=== PATIENT | male | born 1945 | race Caucasian/White ===

== ENCOUNTER 2017-12-08 11:57 | Inpatient (IN) | payer MEDICARE, BC ==
[~2017-12-08] VITALS: Ht 177.8 cm; Wt 95.5 kg
[~2017-12-08 11:57] MED LIST: FAMO-128 PO; PROC5TAB56 PO
[2017-12-08] MEDS ORDERED: ondansetron 4mg rapidly disintigrating tab PO ONE (14:15)
[2017-12-08] MEDS ORDERED: proCHLORperazine 10 MG/2 ml inj IV ONE (14:15)
[2017-12-08] MEDS ORDERED: normal saline 1000ML IV soln IVB ONE (14:15)
[2017-12-08 14:41] LABS: BASOPHILS % (AUTO) 0.3 % (0-1); EOSINOPHILS # (AUTO) 0.2 X10'3 (0-0.9); EOSINOPHILS % (AUTO) 1.5 % (0-6); HEMATOCRIT 49.8 % (42.0-52.0); HEMOGLOBIN 17.5 g/dl (14.0-17.9); LYMPHOCYTES # (AUTO) 1.1 X10'3 (1.1-4.8); LYMPHOCYTES % (AUTO) 10.8 % (21-51); MEAN CORPUSCULAR HEMOGLOBIN 29.4 PG (27.0-31.0); MEAN CORPUSCULAR HGB CONC 35.1 % (33.0-36.5); MEAN CORPUSCULAR VOLUME 83.9 FL (78-98); MEAN PLATELET VOLUME 7.7 FL (7.4-10.4); MONOCYTES # (AUTO) 0.9 X10'3 (0-0.9); MONOCYTES % (AUTO) 8.8 % (2-12); NEUTROPHILS # (AUTO) 8.3 X10'3 (1.8-7.7); NEUTROPHILS % (AUTO) 78.6 % (42-75); PLATELET COUNT 219 X10'3 (140-440); RED BLOOD COUNT 5.94 X10'6 (4.70-6.10); RED CELL DISTRIBUTION WIDTH 13.5 % (11.5-14.5); WHITE BLOOD COUNT 10.6 X10'3 (4.5-11.0)
[2017-12-08 14:54] LABS: ALANINE AMINOTRANSFERASE 27 U/L (12-78); ALBUMIN 4.4 G/DL (3.4-5.0); ALBUMIN/GLOBULIN RATIO 1.1 (1.1-1.5); ALKALINE PHOSPHATASE 62 IU/L (46-116); ANION GAP 14 (8-16); ASPARTATE AMINO TRANSFERASE 21 U/L (10-37); BLOOD UREA NITROGEN 60 MG/DL (7-18); BUN/CREATININE RATIO 16.4 (5.4-32.0); CALCIUM 9.4 MG/DL (8.5-10.1); CHLORIDE 90 MMOL/L (99-107); CREATININE 3.66 MG/DL (0.60-1.10); GLUCOSE 191 MG/DL (70-104); LIPASE 139 U/L (73-393); POTASSIUM 3.1 MMOL/L (3.5-5.1); SODIUM 128 MMOL/L (135-145); TOTAL PROTEIN 8.4 G/DL (6.4-8.2); eGFR 16 ML/MIN
[2017-12-08] MEDS: potassium 10mEq/100ml NS w/LIDOcaine (10mg/bag) IV SCH ×2 (15:08→16:32)
[2017-12-08] MEDS ORDERED: HYDR25TA4 PO (15:13)
[2017-12-08] MEDS ORDERED: METO100T7 PO (15:13)
[2017-12-08] MEDS ORDERED: normal saline 1000ML IV soln IV ONE (15:40)
[2017-12-08] MEDS ORDERED: morphine 4 MG/ML inj SYRINge IV ONE (16:20)
[2017-12-08 16:42] LABS: CLARITY,URINE SLIGHTLY CLOUDY (Clear); COLOR,URINE YELLOW (Yellow); GLUCOSE, URINE NEGATIVE (Neg); KETONES,URINE NEGATIVE (Neg); LEUKOCYTE ESTERASE ,URINE NEGATIVE (Neg); NITRITES, URINE NEGATIVE (Neg); OCCULT BLOOD,URINE TRACE-INTACT (Neg); PROTEIN,URINE TRACE mg/dl (Neg); UROBILINOGEN,URINE 0.2 E.U/dL (0.2-1.0)
[2017-12-08] MEDS ORDERED: MORPHINE 2MG in 2ml NS syringe IV PRN (16:45)
[2017-12-08 16:46] LABS: UA COLLECTION TYPE CLN CATCH MIDSTREAM
[2017-12-08 16:53] LABS: RBC,URINE 0-2 /HPF (0-2); WBC,URINE 0-4 /HPF (0-4)
[2017-12-08 16:54] LABS: BACTERIA,URINE NONE SEEN /HPF (Neg); MUCUS STRANDS FEW /LPF (Neg); SQUAMOUS EPITHELIAL CELL,UR FEW /LPF (FEW)
[2017-12-08] MEDS: ondansetron 4mg rapidly disintigrating tab PO PRN (17:03)
[2017-12-08] MEDS: pantoprazole 40 MG vial IV SCH (17:04)
[2017-12-08] MEDS: normal saline 1000ml 1,000 ML IV SCH (17:06)
[2017-12-08] MEDS ORDERED: heparin, porcine 5000 units/ml vial SQ SCH (20:00)
[2017-12-08] MEDS: heparin, porcine 5000 units/ml vial SQ SCH (20:15)
[2017-12-08] MEDS ORDERED: morphine 4 MG/ML inj SYRINge IV PRN (21:33)
[2017-12-09] MEDS: ondansetron 4mg rapidly disintigrating tab PO PRN (01:25)
[2017-12-09] MEDS: normal saline 1000ml 1,000 ML IV SCH ×3 (02:55→23:07)
[2017-12-09 06:19] LABS: BASOPHILS % (AUTO) 0.2 % (0-1); EOSINOPHILS # (AUTO) 0.1 X10'3 (0-0.9); EOSINOPHILS % (AUTO) 0.8 % (0-6); HEMATOCRIT 47.6 % (42.0-52.0); HEMOGLOBIN 16.4 g/dl (14.0-17.9); LYMPHOCYTES # (AUTO) 0.9 X10'3 (1.1-4.8); LYMPHOCYTES % (AUTO) 11.4 % (21-51); MEAN CORPUSCULAR HEMOGLOBIN 29.2 PG (27.0-31.0); MEAN CORPUSCULAR HGB CONC 34.4 % (33.0-36.5); MEAN PLATELET VOLUME 7.8 FL (7.4-10.4); MONOCYTES # (AUTO) 0.9 X10'3 (0-0.9); NEUTROPHILS # (AUTO) 6.4 X10'3 (1.8-7.7); NEUTROPHILS % (AUTO) 76.6 % (42-75); PLATELET COUNT 211 X10'3 (140-440); RED CELL DISTRIBUTION WIDTH 13.6 % (11.5-14.5); WHITE BLOOD COUNT 8.3 X10'3 (4.5-11.0)
[2017-12-09 06:28] LABS: PROTHROMBIN TIME 10.7 SECONDS (9.0-12.0)
[2017-12-09 06:52] LABS: ALBUMIN 3.7 G/DL (3.4-5.0); ANION GAP 14 (8-16); BLOOD UREA NITROGEN 43 MG/DL (7-18); BUN/CREATININE RATIO 18.7 (5.4-32.0); CALCIUM 8.3 MG/DL (8.5-10.1); CHLORIDE 97 MMOL/L (99-107); GLUCOSE 177 MG/DL (70-104); POTASSIUM 3.5 MMOL/L (3.5-5.1); SODIUM 134 MMOL/L (135-145); TOTAL CARBON DIOXIDE 23.4 MMOL/L (24-32); eGFR 28 ML/MIN
[2017-12-09 07:20] LABS: CLARITY,URINE CLEAR (Clear); COLOR,URINE YELLOW (Yellow); GLUCOSE, URINE NEGATIVE (Neg); KETONES,URINE NEGATIVE (Neg); LEUKOCYTE ESTERASE ,URINE NEGATIVE (Neg); NITRITES, URINE NEGATIVE (Neg); OCCULT BLOOD,URINE TRACE-LYSED (Neg); PH,URINE 5.5 (4.8-8.0); PROTEIN,URINE TRACE mg/dl (Neg); UA COLLECTION TYPE CLN CATCH MIDSTREAM; UROBILINOGEN,URINE 0.2 E.U/dL (0.2-1.0)
[2017-12-09 07:44] LABS: BACTERIA,URINE NONE SEEN /HPF (Neg); MUCUS STRANDS NONE SEEN /LPF (Neg); RBC,URINE NONE SEEN /HPF (0-2); SQUAMOUS EPITHELIAL CELL,UR NONE SEEN /LPF (FEW); WBC,URINE NONE SEEN /HPF (0-4)
[2017-12-09] MEDS ORDERED: hydrALAZINE 20mg/ml inj. IV PRN (09:25)
[2017-12-09] MEDS: pantoprazole 40 MG vial IV SCH (10:19)
[2017-12-09] MEDS: heparin, porcine 5000 units/ml vial SQ SCH ×2 (10:26→19:49)
[2017-12-09] MEDS ORDERED: SINCALIDE IV ONE (14:00)
[2017-12-09] MEDS ORDERED: NORMAL SALINE IV ONE (14:00)
[2017-12-09 17:00] VITALS: BP 152/73
[2017-12-09 20:00] VITALS: BP 138/68
[2017-12-10 00:52] VITALS: BP 136/64
[2017-12-10 03:44] LABS: OCCULT BLOOD STOOL NEGATIVE (Neg)
[2017-12-10 07:11] VITALS: BP 152/74
[2017-12-10] MEDS ORDERED: non-formulary drug (Metoprolol Succinate* (Toprol Xl*) 1 TAB) PO SCH (08:00)
[2017-12-10] MEDS: metoprolol succinate 25mg (24-HOUR) SR. Tablet PO SCH (08:54)
[2017-12-10] MEDS: heparin, porcine 5000 units/ml vial SQ SCH ×2 (08:55→20:38)
[2017-12-10] MEDS: pantoprazole 40 MG vial IV SCH (08:55)
[2017-12-10] MEDS: normal saline 1000ml 1,000 ML IV SCH ×2 (08:55→16:07)
[2017-12-10 09:10] LABS: C DIFF ANTIGEN NEGATIVE (NEGATIVE); C DIFF SPECIMEN=DIARRHEA? ACCEPTABLE; C DIFFICILE TOXINS A&B NEGATIVE (Neg)
[2017-12-10 11:00] VITALS: BP 146/73
[2017-12-10 11:31] LABS: BASOPHILS % (AUTO) 0.4 % (0-1); EOSINOPHILS # (AUTO) 0.2 X10'3 (0-0.9); LYMPHOCYTES # (AUTO) 0.8 X10'3 (1.1-4.8); LYMPHOCYTES % (AUTO) 13.8 % (21-51); MEAN CORPUSCULAR HEMOGLOBIN 29.3 PG (27.0-31.0); MEAN PLATELET VOLUME 7.3 FL (7.4-10.4); MONOCYTES # (AUTO) 0.7 X10'3 (0-0.9); MONOCYTES % (AUTO) 11.8 % (2-12); NEUTROPHILS # (AUTO) 4.3 X10'3 (1.8-7.7); PLATELET COUNT 161 X10'3 (140-440); RED BLOOD COUNT 4.76 X10'6 (4.70-6.10); RED CELL DISTRIBUTION WIDTH 13.8 % (11.5-14.5); WHITE BLOOD COUNT 6.1 X10'3 (4.5-11.0)
[2017-12-10 11:40] LABS: ALBUMIN 3.1 G/DL (3.4-5.0); ANION GAP 10 (8-16); BLOOD UREA NITROGEN 22 MG/DL (7-18); BUN/CREATININE RATIO 14.5 (5.4-32.0); CALCIUM 7.9 MG/DL (8.5-10.1); CHLORIDE 100 MMOL/L (99-107); CREATININE 1.52 MG/DL (0.60-1.10); GLUCOSE 123 MG/DL (70-104); POTASSIUM 3.2 MMOL/L (3.5-5.1); SODIUM 134 MMOL/L (135-145); TOTAL CARBON DIOXIDE 23.7 MMOL/L (24-32); eGFR 45 ML/MIN
[2017-12-10 19:00] VITALS: BP 146/79
[2017-12-11] VITALS: BP 115/51
[2017-12-11] MEDS: normal saline 1000ml 1,000 ML IV SCH ×3 (02:04→23:33)
[2017-12-11 05:59] LABS: BASOPHILS % (AUTO) 0.1 % (0-1); EOSINOPHILS # (AUTO) 0.2 X10'3 (0-0.9); EOSINOPHILS % (AUTO) 4.1 % (0-6); HEMATOCRIT 37.4 % (42.0-52.0); HEMOGLOBIN 13.1 g/dl (14.0-17.9); LYMPHOCYTES # (AUTO) 0.9 X10'3 (1.1-4.8); LYMPHOCYTES % (AUTO) 23.6 % (21-51); MEAN CORPUSCULAR HEMOGLOBIN 29.4 PG (27.0-31.0); MEAN CORPUSCULAR HGB CONC 34.9 % (33.0-36.5); MEAN CORPUSCULAR VOLUME 84.2 FL (78-98); MEAN PLATELET VOLUME 7.5 FL (7.4-10.4); MONOCYTES # (AUTO) 0.5 X10'3 (0-0.9); NEUTROPHILS # (AUTO) 2.4 X10'3 (1.8-7.7); NEUTROPHILS % (AUTO) 60.2 % (42-75); PLATELET COUNT 155 X10'3 (140-440); RED BLOOD COUNT 4.44 X10'6 (4.70-6.10); RED CELL DISTRIBUTION WIDTH 13.6 % (11.5-14.5)
[2017-12-11 06:28] LABS: ALBUMIN 2.9 G/DL (3.4-5.0); ANION GAP 11 (8-16); BLOOD UREA NITROGEN 18 MG/DL (7-18); BUN/CREATININE RATIO 14.2 (5.4-32.0); CHLORIDE 104 MMOL/L (99-107); CREATININE 1.27 MG/DL (0.60-1.10); GLUCOSE 94 MG/DL (70-104); SODIUM 137 MMOL/L (135-145); TOTAL CARBON DIOXIDE 22.3 MMOL/L (24-32); eGFR 55 ML/MIN
[2017-12-11 06:36] LABS: POTASSIUM 2.9 MMOL/L (3.5-5.1)
[2017-12-11 08:08] VITALS: BP 163/69
[2017-12-11] MEDS ORDERED: magnesium Cl slow-release 64mg tablet PO PRN (08:15)
[2017-12-11] MEDS ORDERED: potassium Cl 40MEQ/NS 500ml 500 ML IV PRN ×2 (08:15)
[2017-12-11] MEDS ORDERED: potassium Cl 20 mEq SR tablet PO PRN (08:15)
[2017-12-11] MEDS: pantoprazole 40mg Tablet.DR PO SCH (08:33)
[2017-12-11] MEDS: metoprolol succinate 25mg (24-HOUR) SR. Tablet PO SCH (08:33)
[2017-12-11] MEDS: potassium Cl 20 mEq SR tablet PO PRN ×3 (08:34→20:55)
[2017-12-11] MEDS: heparin, porcine 5000 units/ml vial SQ SCH ×2 (08:34→20:56)
[2017-12-11] MEDS ORDERED: BARIUM SULFATE/METHYLCELLULOSE 600 ML SUSPENSION BOTTLE**DONT ENTER PO ONE (08:59)
[2017-12-11 12:00] VITALS: BP 108/72
[2017-12-11] MEDS: metoclopramide 10mg tablet PO SCH ×2 (16:47→23:33)
[2017-12-11 19:00] VITALS: BP 152/76
[2017-12-12] VITALS: BP 96/69
[2017-12-12 06:25] LABS: POTASSIUM 3.8 MMOL/L (3.5-5.1)
[2017-12-12 08:04] LABS: ALBUMIN 3.2 G/DL (3.4-5.0); ANION GAP 12 (8-16); BLOOD UREA NITROGEN 13 MG/DL (7-18); BUN/CREATININE RATIO 10.3 (5.4-32.0); CALCIUM 8.4 MG/DL (8.5-10.1); CHLORIDE 105 MMOL/L (99-107); CREATININE 1.26 MG/DL (0.60-1.10); GLUCOSE 73 MG/DL (70-104); SODIUM 139 MMOL/L (135-145); TOTAL CARBON DIOXIDE 21.8 MMOL/L (24-32); eGFR 56 ML/MIN
[2017-12-12] MEDS: metoclopramide 10mg tablet PO SCH (08:26)
[2017-12-12] MEDS: metoprolol succinate 25mg (24-HOUR) SR. Tablet PO SCH (08:26)
[2017-12-12] MEDS: pantoprazole 40mg Tablet.DR PO SCH (08:26)
[2017-12-12] MEDS: heparin, porcine 5000 units/ml vial SQ SCH (08:29)
[2017-12-12 09:17] VITALS: BP 167/80
== END 2017-12-12 10:00 | disposition home or self-care (01) | DRG 683 ==
LOC: ER 11:57 → ED HOLD 16:48 → MED 3N 12-09 16:49
PROVIDERS: ADMIT Family Medicine; ATTEND Family Medicine
PROC: CF2YYZZ Tomographic (Tomo) Nuclear Medicine Imaging of Hepatobiliary System and Pancreas using Other Radionuclide (ICD-10-PCS; principal; 2017-12-09)
PROC: BD13YZZ Fluoroscopy of Small Bowel using Other Contrast (ICD-10-PCS; 2017-12-11)
DX: N17.9 Acute kidney failure, unspecified (principal); E87.1 Hypo-osmolality and hyponatremia; E86.0 Dehydration; I12.9 Hypertensive chronic kidney disease with stage 1 through stage 4 chronic kidney disease, or unspecified chronic kidney disease; R73.9 Hyperglycemia, unspecified; R19.7 Diarrhea, unspecified; E87.6 Hypokalemia; N18.9 Chronic kidney disease, unspecified; Z87.11 Personal history of peptic ulcer disease; Z87.891 Personal history of nicotine dependence; Z88.0 Allergy status to penicillin; Z79.899 Other long term (current) drug therapy
CPT/HCPCS: 36415; 71045; 74018; 74176; 74250; 76775; 78227; 80048; 80053; 81001; 82272; 83605; 83690; 83735; 84132; 85025; 85610; 87070; 87324; 87449; 96361; 96374; 96375; 99285; A9537; C9113; J0360; J0780; J1644; J2270; J2805; J3480; J7030; J7040; J8597

== ENCOUNTER 2018-10-07 13:02 | Inpatient (IN) | payer MEDICARE, BC | END 2018-10-13 13:10 | LOC: ER 10-08 01:02 → ICU 2S 10-08 01:15 → MED 3N 10-11 10:12 → ICU 2S 19:14 → ER 19:14 → ICU 2S 14:34 | PROC: 0213093 Bypass Coronary Artery, Four or More Arteries from Coronary Artery with Autologous Venous Tissue, Open Approach (ICD-10-PCS; principal; 2018-10-07 15:32) | PROC: 06BQ4ZZ Excision of Left Saphenous Vein, Percutaneous Endoscopic Approach (ICD-10-PCS; 2018-10-07 15:32) | PROC: 4A023N7 Measurement of Cardiac Sampling and Pressure, Left Heart, Percutaneous Approach (ICD-10-PCS; 2018-10-07 15:32) | DX: I21.3 ST elevation (STEMI) myocardial infarction of unspecified site (principal); I50.33 Acute on chronic diastolic (congestive) heart failure; N17.9 Acute kidney failure, unspecified; I25.119 Atherosclerotic heart disease of native coronary artery with unspecified angina pectoris; N18.9 Chronic kidney disease, unspecified; I48.91 Unspecified atrial fibrillation ==

== ENCOUNTER 2018-11-30 08:53 | Emergency (ER) | payer MEDICARE, BC ==
[~2018-11-30] VITALS: Ht 180.3 cm; Wt 99.2 kg
[~2018-11-30 08:53] MED LIST changes: -FAMO-128 PO; +METO100T7 PO; -PROC5TAB56 PO
--- NOTE | 2018-11-30 09:50 | NUR ---
INITIATE IV AND BLOOD DRAW PER ORDERS, PT UPDATED TO PLAN OF CARE, ORIENTED TO CALL LIGHT, PT HAS TWO FAMILY MEMBERS AT BEDSIDE WITH PT, PT STABLE, DENIES ANY PAIN AND VS WNL.
[2018-11-30 09:54] LABS: BASOPHILS # (AUTO) 0.1 X10'3 (0-0.2); BASOPHILS % (AUTO) 0.8 % (0-1); EOSINOPHILS # (AUTO) 0.3 X10'3 (0-0.9); EOSINOPHILS % (AUTO) 3.8 % (0-6); HEMATOCRIT 37.5 % (42.0-52.0); HEMOGLOBIN 12.5 g/dl (14.0-17.9); LYMPHOCYTES # (AUTO) 1.4 X10'3 (1.1-4.8); LYMPHOCYTES % (AUTO) 18.9 % (21-51); MEAN CORPUSCULAR HEMOGLOBIN 26.7 PG (27.0-31.0); MEAN CORPUSCULAR HGB CONC 33.3 g/dL (33.0-36.5); MEAN CORPUSCULAR VOLUME 80.4 FL (78-98); MEAN PLATELET VOLUME 7.3 FL (7.4-10.4); MONOCYTES # (AUTO) 0.4 X10'3 (0-0.9); MONOCYTES % (AUTO) 5.8 % (2-12); NEUTROPHILS # (AUTO) 5.4 X10'3 (1.8-7.7); NEUTROPHILS % (AUTO) 70.7 % (42-75); PLATELET COUNT 277 X10'3 (140-440); RED BLOOD COUNT 4.67 X10'6 (4.70-6.10); RED CELL DISTRIBUTION WIDTH 15.4 % (11.5-14.5); WHITE BLOOD COUNT 7.6 X10'3 (4.5-11.0)
[2018-11-30 10:05] LABS: ALANINE AMINOTRANSFERASE 18 U/L (12-78); ALBUMIN 3.8 G/DL (3.4-5.0); ALBUMIN/GLOBULIN RATIO 1.1 (1.1-1.5); ALKALINE PHOSPHATASE 84 IU/L (46-116); ANION GAP 9 (8-16); ASPARTATE AMINO TRANSFERASE 13 U/L (10-37); BILIRUBIN,TOTAL 1.2 MG/DL (0.1-1.0); BLOOD UREA NITROGEN 22 MG/DL (7-18); BUN/CREATININE RATIO 13.3 (5.4-32.0); CALCIUM 9.2 MG/DL (8.5-10.1); CHLORIDE 101 MMOL/L (99-107); CREATININE 1.65 MG/DL (0.60-1.10); GLUCOSE 251 MG/DL (70-104); INR 1.1 INR; PARTIAL THROMBOPLASTIN TIME 30 SECONDS (22-32); SODIUM 134 MMOL/L (135-145); TOTAL CARBON DIOXIDE 24.4 MMOL/L (24-32); TOTAL PROTEIN 7.4 G/DL (6.4-8.2); eGFR 41 ML/MIN
[2018-11-30 11:26] VITALS: BP 163/94
--- NOTE | 2018-11-30 12:08 | NUR ---
PT'S DAUGHTER CALLED, STATES THAT AFTER PT WAS DC HE MENTIONED TO HER THAT HE WAS ALMOST OUT OF HIS BP MEDICATION. REQUESTED THAT DR CAMERON CALL A RX IN TO GET HIM BY UNTIL HE SEES HIS PMD. RX TO [facility] IN [place] CALLED IN; LOPRESSOR 75MG PO BID X 30 DAYS. PT WAS CALLED AND NOTIFIED THAT NEW RX FOR HIS BP MEDICATION WAS CALLED INTO [facility] IN [place].
== END 2018-11-30 11:28 | disposition home or self-care (01) ==
LOC: ER 08:54
DX: J90 Pleural effusion, not elsewhere classified (principal); I10 Essential (primary) hypertension; I25.10 Atherosclerotic heart disease of native coronary artery without angina pectoris; E78.00 Pure hypercholesterolemia, unspecified; Z87.891 Personal history of nicotine dependence; Z88.0 Allergy status to penicillin
CPT/HCPCS: 36415; 71045; 80053; 84484; 85025; 85610; 85730; 93005; 99284

== ENCOUNTER 2018-12-07 20:51 | Observation (INO) | payer MEDICARE, BC ==
[~2018-12-07] VITALS: Ht 177.8 cm; Wt 93.8 kg
[2018-12-07 21:47] LABS: BASOPHILS # (AUTO) 0.1 X10'3 (0-0.2); BASOPHILS % (AUTO) 1.3 % (0-1); EOSINOPHILS # (AUTO) 0.4 X10'3 (0-0.9); HEMATOCRIT 39.1 % (42.0-52.0); HEMOGLOBIN 12.6 g/dl (14.0-17.9); LYMPHOCYTES # (AUTO) 2.1 X10'3 (1.1-4.8); LYMPHOCYTES % (AUTO) 23.7 % (21-51); MEAN CORPUSCULAR HEMOGLOBIN 26.2 PG (27.0-31.0); MEAN CORPUSCULAR HGB CONC 32.3 g/dL (33.0-36.5); MEAN CORPUSCULAR VOLUME 81.1 FL (78-98); MEAN PLATELET VOLUME 7.3 FL (7.4-10.4); MONOCYTES # (AUTO) 0.7 X10'3 (0-0.9); NEUTROPHILS # (AUTO) 5.4 X10'3 (1.8-7.7); PLATELET COUNT 298 X10'3 (140-440); RED BLOOD COUNT 4.82 X10'6 (4.70-6.10); RED CELL DISTRIBUTION WIDTH 15.7 % (11.5-14.5); WHITE BLOOD COUNT 8.6 X10'3 (4.5-11.0)
[2018-12-07 21:59] LABS: ALANINE AMINOTRANSFERASE 20 U/L (12-78); ALBUMIN 4.1 G/DL (3.4-5.0); ALBUMIN/GLOBULIN RATIO 1.1 (1.1-1.5); ALKALINE PHOSPHATASE 92 IU/L (46-116); ANION GAP 10 (8-16); ASPARTATE AMINO TRANSFERASE 16 U/L (10-37); BILIRUBIN,TOTAL 1.3 MG/DL (0.1-1.0); BLOOD UREA NITROGEN 22 MG/DL (7-18); BUN/CREATININE RATIO 12.1 (5.4-32.0); CALCIUM 9.3 MG/DL (8.5-10.1); CHLORIDE 102 MMOL/L (99-107); CREATININE 1.82 MG/DL (0.60-1.10); GLUCOSE 139 MG/DL (70-104); POTASSIUM 3.9 MMOL/L (3.5-5.1); SODIUM 139 MMOL/L (135-145); TOTAL CARBON DIOXIDE 27.4 MMOL/L (24-32); TOTAL PROTEIN 7.7 G/DL (6.4-8.2); eGFR 36 ML/MIN
[2018-12-07 22:06] LABS: INR 1.1 INR; PARTIAL THROMBOPLASTIN TIME 28 SECONDS (22-32)
[2018-12-08] MEDS ORDERED: ondansetron/PF 4mg/2ml inj IV PRN (01:40)
[2018-12-08] MEDS ORDERED: HYDROcodone/acetaminophen 5mg/325mg tablet PO PRN (01:40)
[2018-12-08] MEDS ORDERED: acetaminophen 325mg tablet PO PRN ×2 (01:40)
[2018-12-08] MEDS ORDERED: mag hydrox/Alum hydrox/simeth 30ml oral suspension PO PRN (01:40)
[2018-12-08] MEDS ORDERED: magnesium hydroxide 30ml (MOM) UD suspension PO PRN (01:40)
[2018-12-08 03:00] VITALS: BP 196/87
[2018-12-08] MEDS ORDERED: nitroGLYCERIN 0.4mg/hour patch TD ONE (03:00)
--- NOTE | 2018-12-08 03:00 | NUR ---
Pt in room 315 brought on gurney by ER nurse. The pt was helped into bed, oriented to room, call light, phone, and staff. He stated understanding. He had some occasional noted SOB when speaking but very seldom and was able to speak in full sentences and had no s/s of distress. His O2 sats were 98% on room air. His BP has been elevated so Nitro patch placed on L chest wall per order. He denied any pain. He stated he was very tired from being in the ER since early this evening and needed to sleep. Basic nursing assessment done and labs collected for Troponin level ordered. Pt tolerated well.
--- NOTE | 2018-12-08 04:15 | NUR ---
Patient in room MED 315. I have received report from Adair JOHNSTON from ER and had the opportunity to ask questions and assume patient care.
[2018-12-08 06:00] VITALS: BP 139/79
--- NOTE | 2018-12-08 06:15 | NUR ---
Patient in room MED 315. I have received report from Toya JOHNSTON and had the opportunity to ask questions and assume patient care.
--- NOTE | 2018-12-08 06:45 | NUR ---
Problems reprioritized. Patient report given, questions answered & plan of care reviewed with Ashley JOHNSTON.
[2018-12-08] MEDS ORDERED: ATOR10TA87 PO (08:38)
[2018-12-08] MEDS ORDERED: ASPI-1264 PO (08:40)
[2018-12-08] MEDS: metoprolol succinate 25mg (24-HOUR) SR. Tablet PO SCH (08:49)
[2018-12-08 10:34] LABS: BASOPHILS # (AUTO) 0.1 X10'3 (0-0.2); BASOPHILS % (AUTO) 0.7 % (0-1); EOSINOPHILS # (AUTO) 0.3 X10'3 (0-0.9); EOSINOPHILS % (AUTO) 3.8 % (0-6); HEMATOCRIT 34.2 % (42.0-52.0); HEMOGLOBIN 11.3 g/dl (14.0-17.9); LYMPHOCYTES # (AUTO) 1.3 X10'3 (1.1-4.8); LYMPHOCYTES % (AUTO) 19.4 % (21-51); MEAN CORPUSCULAR HEMOGLOBIN 26.2 PG (27.0-31.0); MEAN CORPUSCULAR HGB CONC 32.9 g/dL (33.0-36.5); MEAN CORPUSCULAR VOLUME 79.6 FL (78-98); MEAN PLATELET VOLUME 7.4 FL (7.4-10.4); MONOCYTES # (AUTO) 0.6 X10'3 (0-0.9); MONOCYTES % (AUTO) 8.4 % (2-12); NEUTROPHILS # (AUTO) 4.7 X10'3 (1.8-7.7); NEUTROPHILS % (AUTO) 67.7 % (42-75); PLATELET COUNT 237 X10'3 (140-440); RED CELL DISTRIBUTION WIDTH 15.6 % (11.5-14.5); WHITE BLOOD COUNT 6.9 X10'3 (4.5-11.0)
[2018-12-08] MEDS ORDERED: albuterol 2.5 MG/3 ML nebule ONE (10:38)
[2018-12-08 10:47] LABS: D-DIMER 1.39 MG/L FEU (0-0.50)
[2018-12-08] MEDS: aspirin 325mg tablet PO SCH (10:54)
[2018-12-08] MEDS: furosemide 40mg tablet PO SCH ×2 (10:55→20:20)
[2018-12-08 11:00] VITALS: BP 135/84
[2018-12-08 11:03] LABS: ALBUMIN 3.4 G/DL (3.4-5.0); ANION GAP 9 (8-16); BLOOD UREA NITROGEN 19 MG/DL (7-18); BUN/CREATININE RATIO 12.4 (5.4-32.0); CALCIUM 9.4 MG/DL (8.5-10.1); CHLORIDE 103 MMOL/L (99-107); CHOL/HDL RATIO 2.8 (0.00-4.99); CHOLESTEROL 95 MG/DL (0-200); CREATININE 1.53 MG/DL (0.60-1.10); GLUCOSE 223 MG/DL (70-104); HDL CHOLESTEROL 34 MG/DL (35-60); LDL CHOLESTEROL 60 MG/DL (50-100); POTASSIUM 3.6 MMOL/L (3.5-5.1); SODIUM 138 MMOL/L (135-145); TOTAL CARBON DIOXIDE 25.8 MMOL/L (24-32); TRIGLYCERIDES 67 MG/DL (20-135); eGFR 45 ML/MIN
--- NOTE | 2018-12-08 13:54 | NUR ---
Paged Dr Joya to notify him of patient's D Dimer level of 1.39.
--- NOTE | 2018-12-08 15:05 | NUR ---
Patient picked up for VQ scan.
[2018-12-08] MEDS: potassium Cl 20 mEq SR tablet PO SCH (17:40)
[2018-12-08 18:00] VITALS: BP 139/81
--- NOTE | 2018-12-08 18:10 | NUR ---
Patient in room MED 315. I have received report from Ashley and had the opportunity to ask questions and assume patient care.
--- NOTE | 2018-12-08 18:38 | NUR ---
Problems reprioritized. Patient report given, questions answered & plan of care reviewed with Cesar JOHNSTON.
[2018-12-08] MEDS: atorvastatin 10mg tablet PO SCH (20:20)
[2018-12-08] MEDS ORDERED: temazepam 15mg capsule PO PRN (21:00)
[2018-12-08 22:00] VITALS: BP 140/76
[2018-12-09 02:00] VITALS: BP 133/69
[2018-12-09 04:30] LABS: BASOPHILS % (AUTO) 0.6 % (0-1); EOSINOPHILS # (AUTO) 0.3 X10'3 (0-0.9); EOSINOPHILS % (AUTO) 4.7 % (0-6); HEMATOCRIT 36.8 % (42.0-52.0); LYMPHOCYTES # (AUTO) 1.8 X10'3 (1.1-4.8); LYMPHOCYTES % (AUTO) 24.5 % (21-51); MEAN CORPUSCULAR HEMOGLOBIN 26.3 PG (27.0-31.0); MEAN CORPUSCULAR HGB CONC 32.6 g/dL (33.0-36.5); MEAN CORPUSCULAR VOLUME 80.6 FL (78-98); MEAN PLATELET VOLUME 7.1 FL (7.4-10.4); MONOCYTES # (AUTO) 0.7 X10'3 (0-0.9); MONOCYTES % (AUTO) 8.9 % (2-12); NEUTROPHILS # (AUTO) 4.5 X10'3 (1.8-7.7); NEUTROPHILS % (AUTO) 61.3 % (42-75); PLATELET COUNT 266 X10'3 (140-440); RED BLOOD COUNT 4.57 X10'6 (4.70-6.10); RED CELL DISTRIBUTION WIDTH 15.7 % (11.5-14.5); WHITE BLOOD COUNT 7.4 X10'3 (4.5-11.0)
[2018-12-09 05:09] LABS: ALBUMIN 3.7 G/DL (3.4-5.0); ANION GAP 11 (8-16); BLOOD UREA NITROGEN 21 MG/DL (7-18); BUN/CREATININE RATIO 12.8 (5.4-32.0); CALCIUM 10.3 MG/DL (8.5-10.1); CHLORIDE 100 MMOL/L (99-107); CHOL/HDL RATIO 2.9 (0.00-4.99); CHOLESTEROL 108 MG/DL (0-200); CREATININE 1.64 MG/DL (0.60-1.10); GLUCOSE 132 MG/DL (70-104); HDL CHOLESTEROL 37 MG/DL (35-60); LDL CHOLESTEROL 63 MG/DL (50-100); POTASSIUM 3.5 MMOL/L (3.5-5.1); SODIUM 139 MMOL/L (135-145); TOTAL CARBON DIOXIDE 27.6 MMOL/L (24-32); TRIGLYCERIDES 73 MG/DL (20-135); eGFR 41 ML/MIN
[2018-12-09 06:00] VITALS: BP 140/77
--- NOTE | 2018-12-09 06:06 | NUR ---
Problems reprioritized. Patient report given, questions answered & plan of care reviewed with Chelly.
[2018-12-09] MEDS ORDERED: furosemide 20 MG/2 ML vial IV ONE ×2 (07:55→12:00)
[2018-12-09] MEDS: furosemide 40mg tablet PO SCH ×2 (08:00→20:16)
[2018-12-09] MEDS: potassium Cl 20 mEq SR tablet PO SCH ×2 (08:14→17:14)
[2018-12-09] MEDS: metoprolol succinate 25mg (24-HOUR) SR. Tablet PO SCH (08:14)
[2018-12-09] MEDS: aspirin 325mg tablet PO SCH (08:14)
--- NOTE | 2018-12-09 09:43 | NUR ---
SPOKE WITH DR ALBA, I STATED THAT CPFT WERE ONLY DONE AN OUTPATIENT PROCEDURE. HE STATED HE DID NOT ORDER THE CPFT AND THAT IT MUST HAVE BEEN ORDERED BY MISTAKE. ORDERED CANCELLED 12/09.
[2018-12-09] MEDS: losartan 25mg tablet PO SCH (09:44)
[2018-12-09 11:00] VITALS: BP 121/72
[2018-12-09] MEDS ORDERED: potassium Cl 20 mEq SR tablet PO ONE (12:00)
[2018-12-09 15:00] VITALS: BP 133/73
[2018-12-09 18:00] VITALS: BP 134/64
--- NOTE | 2018-12-09 18:10 | NUR ---
Patient in room MED 315. I have received report from Cami and had the opportunity to ask questions and assume patient care.
[2018-12-09] MEDS: atorvastatin 10mg tablet PO SCH (20:16)
[2018-12-09 22:00] VITALS: BP 126/72
[2018-12-10 03:00] VITALS: BP 137/77
[2018-12-10 06:00] VITALS: BP 111/68
--- NOTE | 2018-12-10 06:15 | NUR ---
Patient in room MED 315. I have received report from VICKIE SANCHEZ and had the opportunity to ask questions and assume patient care.
[2018-12-10 06:21] LABS: BASOPHILS % (AUTO) 0.6 % (0-1); EOSINOPHILS # (AUTO) 0.4 X10'3 (0-0.9); EOSINOPHILS % (AUTO) 5.5 % (0-6); HEMATOCRIT 38.2 % (42.0-52.0); HEMOGLOBIN 12.6 g/dl (14.0-17.9); LYMPHOCYTES # (AUTO) 1.9 X10'3 (1.1-4.8); LYMPHOCYTES % (AUTO) 24.3 % (21-51); MEAN CORPUSCULAR HGB CONC 32.9 g/dL (33.0-36.5); MEAN CORPUSCULAR VOLUME 78.9 FL (78-98); MEAN PLATELET VOLUME 7.3 FL (7.4-10.4); MONOCYTES # (AUTO) 0.7 X10'3 (0-0.9); MONOCYTES % (AUTO) 8.5 % (2-12); NEUTROPHILS # (AUTO) 4.7 X10'3 (1.8-7.7); NEUTROPHILS % (AUTO) 61.1 % (42-75); PLATELET COUNT 299 X10'3 (140-440); RED BLOOD COUNT 4.84 X10'6 (4.70-6.10); RED CELL DISTRIBUTION WIDTH 15.7 % (11.5-14.5); WHITE BLOOD COUNT 7.7 X10'3 (4.5-11.0)
[2018-12-10 06:35] LABS: ALBUMIN 3.7 G/DL (3.4-5.0); ANION GAP 11 (8-16); BLOOD UREA NITROGEN 29 MG/DL (7-18); BUN/CREATININE RATIO 14.9 (5.4-32.0); CALCIUM 9.8 MG/DL (8.5-10.1); CHLORIDE 99 MMOL/L (99-107); CREATININE 1.95 MG/DL (0.60-1.10); GLUCOSE 136 MG/DL (70-104); POTASSIUM 3.8 MMOL/L (3.5-5.1); SODIUM 138 MMOL/L (135-145); TOTAL CARBON DIOXIDE 28.1 MMOL/L (24-32); eGFR 34 ML/MIN
[2018-12-10 07:50] VITALS: BP 130/70
[2018-12-10] MEDS: losartan 25mg tablet PO SCH (07:53)
[2018-12-10] MEDS: furosemide 40mg tablet PO SCH (07:53)
[2018-12-10] MEDS: aspirin 325mg tablet PO SCH (07:53)
[2018-12-10] MEDS: potassium Cl 20 mEq SR tablet PO SCH (07:53)
[2018-12-10] MEDS: metoprolol succinate 25mg (24-HOUR) SR. Tablet PO SCH (07:53)
--- NOTE | 2018-12-10 08:06 | NUR ---
PAGER ID: [phone] MESSAGE: [phone]: EMANUEL - Feeling great. Wanting to go home. Nurse Ashlee [phone]. thank you :D
[2018-12-10 11:00] VITALS: BP 102/68
--- NOTE | 2018-12-10 13:41 | NUR ---
DR. WALLER at bedside. Informed patient to f/u with him in 2 weeks, BNP/BMP labs in 1 week.
--- NOTE | 2018-12-10 14:29 | NUR ---
PAGER ID: [phone] MESSAGE: [phone]: Angela - anxious to D/C. could you round on ACCE after your lunch before heading to surg? nurse Ashlee [phone]
[2018-12-10] MEDS ORDERED: LOSA25TA41 PO (14:45)
[2018-12-10] MEDS ORDERED: POTA-82 PO (14:52)
[2018-12-10] MEDS ORDERED: FURO40TA4 PO (14:52)
[2018-12-10] MEDS ORDERED: FURO-150 PO (14:54)
--- NOTE | 2018-12-10 15:00 | NUR ---
Dr. Claudio office closed. patient sent home with office phone number and instructions to call on Thursday. Addendum: 12/10/18 at 1501 by Radha Reed RN Amended: Links added.
== END 2018-12-10 15:40 | disposition home health service (06) ==
LOC: ER 20:52 → MED 3N 12-08 01:49 → CMPBEDREQ 12-08 01:53 → MED 3N 12-08 01:55 → CMPBEDREQ 12-08 02:08
PROVIDERS: ADMIT Hospitalist; ATTEND Family Medicine
DX: R06.02 Shortness of breath (principal); E78.00 Pure hypercholesterolemia, unspecified; I25.10 Atherosclerotic heart disease of native coronary artery without angina pectoris; I25.2 Old myocardial infarction; Z95.1 Presence of aortocoronary bypass graft; Z87.11 Personal history of peptic ulcer disease
CPT/HCPCS: 36415; 71045; 78582; 80048; 80053; 80061; 83880; 84484; 85025; 85379; 85610; 85730; 87070; 93005; 93306; 93970; 96374; 96376; 99284; A9539; A9540; G0378; J1940

== ENCOUNTER 2023-01-14 17:28 | Emergency (ER) | payer MEDICARE, BC ==
[~2023-01-14] VITALS: Ht 177.8 cm; Wt 90.5 kg
[~2023-01-14 17:28] MED LIST changes: +ASPI-1264 PO; +ATOR10TA87 PO; +FURO-150 PO; +FURO40TA4 PO; +LOSA25TA41 PO; +POTA-366 PO
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
[2023-01-14] MEDS ORDERED: LIDOcaine 5% patch TP STA (19:23)
[2023-01-14] MEDS ORDERED: LIDO-15 TD (19:33)
[2023-01-14 20:56] VITALS: BP 130/72
== END 2023-01-14 20:57 | disposition home or self-care (01) ==
LOC: ER 17:29
DX: M54.2 Cervicalgia (principal); I10 Essential (primary) hypertension; E78.00 Pure hypercholesterolemia, unspecified; Z88.0 Allergy status to penicillin; V69.9XXA Occupant (driver) (passenger) of heavy transport vehicle injured in unspecified traffic accident, initial encounter; Y93.89 Activity, other specified; Y92.89 Other specified places as the place of occurrence of the external cause; Y99.8 Other external cause status
CPT/HCPCS: 70450; 72125; 93005; 99284

== ENCOUNTER 2023-04-08 23:06 | Emergency (ER) | payer MEDICARE, BC ==
[~2023-04-08] VITALS: Ht 177.8 cm; Wt 89.5 kg
[~2023-04-08 23:06] MED LIST changes: +LIDO-15 TD
[2023-04-08 23:08] VITALS: TEMP 98.9
[2023-04-08 23:38] LABS: BASOPHILS # (AUTO) 0.1 X10'3 (0-0.2); BASOPHILS % (AUTO) 0.7 % (0-1); EOSINOPHILS # (AUTO) 0.1 X10'3 (0-0.9); EOSINOPHILS % (AUTO) 1.3 % (0-6); HEMATOCRIT 38.4 % (42.0-52.0); HEMOGLOBIN 13.2 g/dl (14.0-17.9); LYMPHOCYTES # (AUTO) 1.4 X10'3 (1.1-4.8); LYMPHOCYTES % (AUTO) 17.1 % (21-51); MEAN CORPUSCULAR HEMOGLOBIN 28.8 PG (27.0-31.0); MEAN CORPUSCULAR HGB CONC 34.3 g/dL (33.0-36.5); MEAN PLATELET VOLUME 7.8 FL (7.4-10.4); MONOCYTES # (AUTO) 0.7 X10'3 (0-0.9); MONOCYTES % (AUTO) 8.6 % (2-12); NEUTROPHILS # (AUTO) 5.8 X10'3 (1.8-7.7); NEUTROPHILS % (AUTO) 72.3 % (42-75); PLATELET COUNT 206 X10'3 (140-440); RED BLOOD COUNT 4.57 X10'6 (4.70-6.10); RED CELL DISTRIBUTION WIDTH 14.5 % (11.5-14.5)
[2023-04-09 00:05] LABS: ALANINE AMINOTRANSFERASE 8 U/L (12-78); ALBUMIN 3.9 G/DL (3.4-5.0); ALBUMIN/GLOBULIN RATIO 1.1 (1.1-1.5); ALKALINE PHOSPHATASE 65 IU/L (46-116); ANION GAP 13 (8-16); ASPARTATE AMINO TRANSFERASE 16 U/L (10-37); BLOOD UREA NITROGEN 48 MG/DL (7-18); BUN/CREATININE RATIO 17.1 (10.0-20.0); CALCIUM 9.6 MG/DL (8.5-10.1); CHLORIDE 96 MMOL/L (99-107); ETHANOL < 10 MG/DL (<10); GLUCOSE 176 MG/DL (70-104); POTASSIUM 3.3 MMOL/L (3.5-5.1); PRO BRAIN NATRIURETIC PEPTIDE 2116 PG/ML (0-450); SODIUM 135 MMOL/L (135-145); TOTAL CARBON DIOXIDE 26.5 MMOL/L (24-32); TOTAL PROTEIN 7.5 G/DL (6.4-8.2); eCRCL 22 ML/MIN; eGFR 22 ML/MIN
--- NOTE | 2023-04-09 00:05 | NUR ---
RECEIVED CALL FROM CT, NOTIFIED PT HAS BRAIN BLEED. DR MCCULLOUGH MADE AWARE
--- NOTE | 2023-04-09 00:07 | NUR ---
PT PLACED ON Q15 MINUTE VS AND NEURO CHECKS, SEIZURE PADS PLACED
[2023-04-09] MEDS ORDERED: acetaminophen 325mg tablet PO ONE ×2 (00:10)
--- NOTE | 2023-04-09 00:18 | NUR ---
HOB AT 30 DEGREES
--- NOTE | 2023-04-09 00:33 | NUR ---
DR MCCULLOUGH MADE AWARE OF PTS DECREASED SENSATION TO LLE
[2023-04-09 00:47] LABS: URINE AMPHETAMINE SCREEN NEGATIVE (Neg); URINE BARBITUATE SCREEN NEGATIVE (Neg); URINE BENZODIAZEPINES SCREEN NEGATIVE (Neg); URINE CANNABINOID SCREEN NEGATIVE (Neg); URINE COCAINE SCREEN NEGATIVE (Neg); URINE METHADONE SCREEN NEGATIVE (Neg); URINE OPIATE SCREEN NEGATIVE (Neg); URINE PHENCYCLIDINE SCREEN NEGATIVE (Neg)
--- NOTE | 2023-04-09 00:58 | NUR ---
REPORT CALLED TO [facility] VICKIE KNIGHT
[2023-04-09 01:28] VITALS: BP 112/54; PULSE 73; RESP 15; O2SAT 96
== END 2023-04-09 02:07 | disposition short-term general hospital (02) ==
LOC: ER 23:07
DX: S06.360A Traumatic hemorrhage of cerebrum, unspecified, without loss of consciousness, initial encounter (principal); E78.00 Pure hypercholesterolemia, unspecified; I11.0 Hypertensive heart disease with heart failure; Z88.0 Allergy status to penicillin; V98.8XXA Other specified transport accidents, initial encounter; Y93.89 Activity, other specified; Y92.89 Other specified places as the place of occurrence of the external cause; Y99.8 Other external cause status
CPT/HCPCS: 36415; 70450; 71045; 80053; 80305; 80320; 82140; 83880; 84484; 85025; 93005; 99285